=== PATIENT | male | born 2000 | race Caucasian/White ===

== ENCOUNTER 2024-12-23 10:32 | Emergency (ER) | payer OTHER, SELFPAY ==
[2024-12-23 10:38] VITALS: BP 120/71
[2024-12-23 10:52] VITALS: BP 123/68
--- NOTE | 2024-12-23 10:52 | ED.GENMED ---
History of Present Illness
General
Chief Complaint: Abdominal Symptoms
Source: patient
Exam Limitations: none
Time Seen by Provider: 12/23/24 10:50
Nursing documentation reviewed up to this point in time: agreed with
History of Present Illness
History of Present Illness:
24 yo male with history of IBS, states he was on a cruise 12/11-12/18, [place], was in [place] 12/16-12/18. Started with fever, fever mx 101.6 yesterday, non bloody diarrhea, nausea 12/17. Vomited once yesterday none since. Last diarrhea 3 hours ago,
none since. Today, while working at his desk at home developed perioral numbness and numbness in hands and feet that lasted 30 minutes.
Saw PCP yesterday and had labs, stool sent, [facility], no results yet, Denies hyperventilating, lightheadedness.
Past History
Past History
ED Past Medical History: Other (IBS, takes Bentyl as needed)
Social History
Tobacco: Non-smoker
Alcohol: Occasional
Personal: Single
Living: with family
Employment: Employed
Review of Systems
Review of Systems
Allergies reviewed?: Yes
All Other Systems: ROS reviewed and negative except as documented in HPI and ROS
Constitutional: Reports fever
Respiratory: Denies trouble breathing
Cardiac: Denies chest pain
ABD/GI: Reports nausea and diarrhea; Denies vomiting, bloody stools or black stools
Musculoskeletal: Reports no symptoms
Skin: Reports no symptoms
Neurological: Reports numbness (Perioral numbness and numbness in hands and feet earlier this morning, none now)
Phy Exam
Physical Exam
Physical Exam:
GENERAL: No acute distress. A&Ox3.
CONSTITUTIONAL: Afebrile.
EYES: clear, conjunctivae normal
ENMT: moist mucus membranes
RESPIRATORY: Regular respirations, nonlabored, lungs clear.
CARDIOVASCULAR: Regular rate and rhythm, no murmurs, no rubs.
GI: Soft, nontender, normal BS
MUSCULOSKELETAL: Moves with ease. Well perfused.
SKIN: Warm, dry, pink
PSYCH: Normal mood and affect. Well kept, interactive and appropriate
NEUROLOGIC: Awake, alert and oriented. No focal neurological deficits
Course
Orders/Labs/Results
Orders:
Orders
12/23/24 10:52
0.9% Sodium Chloride 1000 ml [Nss] 1,000 ml IV BOLUS
Ondansetron Injectable [Zofran] 4 mg IV NOW STA
12/23/24 11:01
Ibuprofen [Motrin] 600 mg PO NOW STA
12/23/24 11:11
Complete Blood Count/With Diff Urgent
Comprehensive Metabolic Panel Urgent
12/23/24 12:26
Azithromycin [Zithromax] 1,000 mg PO NOW STA
Abnormal Lab Results
12/23/24
11:11
RBC 4.15 L 10^6/uL
(4.70-6.10)
Hgb 12.6 L g/dL
(13.0-18.0)
Hct 35.0 L %
(39.0-52.0)
RDW 11.0 L %
(11.5-14.5)
Abs Immat Gran (auto) 0.1 H 10^3/uL
(0-0.05)
Absolute Monos (auto) 1.0 H 10^3/uL
(0.1-0.6)
Immature Gran % 0.9 H %
(0-0.5)
Lymphocytes % 14.3 L %
(20.5-51.1)
Monocytes % 11.5 H %
(1.7-9.3)
Sodium 134 L mmol/L
(135-145)
Potassium 3.1 L mmol/L
(3.5-5.1)
Glucose 128 H mg/dl
(70-99)
12/23/24 11:11
12/23/24 11:11
Vital Signs
Initial and Last Documented VS:
Initial Vital Signs
Temp Pulse Resp BP Pulse Ox
102.3 F H 93 18 120/71 95
12/23/24 10:38 12/23/24 10:38 12/23/24 10:38 12/23/24 10:38 12/23/24 10:38
Last Documented Vital Signs
Temp Pulse Resp BP Pulse Ox
98.1 F 83 18 103/62 97
12/23/24 12:41 12/23/24 12:41 12/23/24 12:41 12/23/24 12:41 12/23/24 12:41
MDM/Problems Addressed
Differential Diagnosis Includes:
shiga toxin, e coli, c diff, dehydration
MDM/Problems Addressed:
24 yo male with history of IBS, states he was on a cruise 12/11-12/18, [place], was in [place] 12/16-12/18. Started with fever, fever mx 101.6 yesterday, non bloody diarrhea, nausea 12/17. Vomited once yesterday none since. Last diarrhea 3 hours ago,
none since. Today, while working at his desk at home developed perioral numbness and numbness in hands and feet that lasted 30 minutes. Denies hyperventilating, lightheadedness.
Saw PCP yesterday and had labs, stool sent, [facility], no results yet
Totally nontoxic appearing
Most likely traveller's diarrhea, with fever, vomiting, abdominal pain, antibiotics indicated.
One dose Azithromycin 1000 mg given
12:20 p.m.
After Ibuprofen, IVF's Defervesced: Temp 99.6
CBC, CMP with no clinically significant abnormality
Unable to provide a stool sample here
He will obtain stool results from PCP
*Critical Care Note
Total Time (30-74mins, 75-104mins- exclusive of procedures): Not Applicable
ED Attending Note
-
Portions of this chart may have been created with voice recognition software.� Occasional wrong word or��sound alike� substitutions may have occurred due to the inherent limitations of voice recognition software.
Discharge Plan
Departure
Patient Disposition: Home (Routine Discharge)
Date of Disposition: 12/23/24
Time of Disposition: 12:22
Patient with high blood pressure during this ER visit?: No
Condition: Good
Discharge Problem:
Diarrhea, travelers'
Instructions: Diarrhea in teens and adults, Travelers' diarrhea
Referrals:
Torres Toney, DO [Family Provider] - As needed
Activity Restrictions/Additional Instructions:
As we discussed, nothing worrisome in your workup here today.
Check with your doctor about the stool culture results since you are unable to give us a stool sample here today
Interventions
Interventions:
*Risk Screen - Suicide Last Done: 12/23/24 10:38
*General Assessment Last Done: 12/23/24 10:38
*Neglect/Abuse Screening Last Done: 12/23/24 10:38
*ED- Fall Risk Assessment Last Done: 12/23/24 11:00
*ED COVID-19 Vaccine History Last Done: 12/23/24 11:00
*Nursing Disposition Last Done: 12/23/24 12:41
YX-Hrpsyi-Rlvdftysgc Assessment Last Done: 12/23/24 11:00
Discharge Date and Time
Discharge Date/Time: 12/23/24 12:43
Print Language: [id number]
[2024-12-23 11:00] VITALS: BP 114/76; BMI 27.7
[2024-12-23] MEDS: NSS 1000 IV (11:12)
[2024-12-23] MEDS: MOTRIN 600 MG PO (11:17)
[2024-12-23] MEDS: ZOFRAN 4 MG IV (11:17)
[2024-12-23 11:20] LABS: % Basophils 0.6 % (0-2); % Eosinophils 0.4 % (0-6); % Immature Granulocytes 0.9 % (0-0.5); % Lymphocytes 14.3 % (20.5-51.1); % Monocytes 11.5 % (1.7-9.3); % Neutrophils 72.3 % (42.2-75.2); Absolute Basophils 0.1 10^3/uL (0-0.2); Absolute Immature Granulocytes 0.1 10^3/uL (0-0.05); Absolute Lymphocytes 1.2 10^3/uL (1.2-3.4); Absolute Neutrophils 6.1 10^3/uL (1.4-6.5); Hemoglobin 12.6 g/dL (13.0-18.0); Mean Corpuscular Hgb 30.4 pg (27.0-31.0); Mean Corpuscular Volume 84.3 fL (80.0-94.0); Mean Platelet Volume 10.1 fL (7.4-10.4); Nucleated Red Blood Cells % 0 % (-); Platelet Count 152 10^3/uL (130-400); Red Blood Cell Count 4.15 10^6/uL (4.70-6.10); White Blood Cell Count 8.5 10^3/uL (4.8-10.8)
[2024-12-23 11:36] LABS: ALT (SGPT) 34 U/L (0-50); AST (SGOT) 45 U/L (17-59); Albumin 4.2 g/dl (3.5-5.0); Alkaline Phosphatase 43 U/L (38-126); Blood Urea Nitrogen 9 mg/dl (9-20); Calcium 8.6 mg/dl (8.4-10.2); Carbon Dioxide 28 mmol/L (22-30); Chloride 100 mmol/L (98-107); Estimated Creatinine Clearance 108 ml/min; Glucose 128 mg/dl (70-99); Potassium 3.1 mmol/L (3.5-5.1); Sodium 134 mmol/L (135-145); Total Bilirubin 0.9 mg/dl (0.2-1.3); Total Protein 6.8 g/dl (6.3-8.2); eGFR > 60.00
[2024-12-23 12:00] VITALS: BP 103/62
[2024-12-23] MEDS: ZITHROMAX 1000 MG PO (12:33)
[2024-12-23 12:41] VITALS: BP 103/62
== END 2024-12-23 12:43 | disposition home or self-care (01) ==
LOC: EMR 10:32
PROVIDERS: Registered Nurse; EMERGENCY PHYSICIAN Emergency Medicine; FAMILY PHYSICIAN Family Medicine
DX: R19.7 Diarrhea, unspecified (principal); R11.0 Nausea
CPT/HCPCS: 96374; 96361; 99284; 80053; 85025